=== PATIENT | male | born 1985 | race Caucasian/White ===

== ENCOUNTER 2016-12-05 08:14 | Day surgery (SDC) | payer BC ==
[~2016-12-05] VITALS: Ht 200.7 cm; Wt 157.9 kg
[~2016-12-05 08:14] MED LIST: IBUP-1724 PO; LIDOCAINE 1% (10mg/ml) 2ml SDV INJ ONE; LR 1,000 ML IV SCH; OMEP40CA52 PO
--- OUTSIDE RECORDS SUMMARY | 2016-12-05 08:20 | XMS REPORT | Continuity of Care Document ---
Author Author [facility] Organization [facility] Address Unknown Phone Unavailable Support Name Relationship Address Phone RANDI CENTENO MD Caregiver [address] [place] [address] SEEMA TORIBIO Next Of Kin [address] [place] [address] Insurance Providers Payer Name Policy Number Subscriber Name Relationship UMR [id number] Joe Toribio 16 Self / Same As Patient Problems Medical Problems Problem Onset Date Status Acute pain ~02/27/2014 Active Rhabdomyolysis ~10/08/2014 Active Chest wall pain ~10/08/2014 Active Costochondritis, acute ~10/28/2014 Active Rhabdomyolysis ~10/28/2014 Active Medications Medication Dose Route Sig Days/Qty Instructions Order Date Discontinued Date Status Ibuprofen 800 Mg ORAL THREE TIMES A DAY PRN PAIN 30 Qty 02/27/14 Active Acetaminophen/Codeine 1 Tab ORAL EVERY 4HRS PRN PAIN 15 Qty 02/27/14 10/08/14 Discontinued Social History No social history. Hospital Discharge Instructions No hospital discharge instructions. Plan of Care Discharge Date 10/28/14 4:37am Instructions/Education Provided Costochondritis (ED) Rhabdomyolysis (ED) Prescriptions See Medications Section Functional Status No functional status results. Allergies, Adverse Reactions, Alerts Allergen Type Severity Reaction Status Last Updated latex Allergy Mild Active 02/27/14 Immunizations No immunization records. Vital Signs Acute Vital Signs Vital Response Date/Time Temperature (Fahrenheit) 98.5 Pulse 73 bpm Respirations 20 Height 5 ft 9 in Weight 185 lb Body Mass Index 27.3 kg/m^2 Results Test Source Date Result Interp. Ref. Range Comments Activated Partial Thromboplast Time October 08, 2014 1:05pm 33.0 SEC N 25.0-39.0 Alanine Aminotransferase (ALT/SGPT) October 28, 2014 1:16am 39 U/L N 30- 65 Albumin October 28, 2014 1:16am 4.6 g/dL N 3.4-5.0 Albumin/Globulin Ratio October 28, 2014 1:16am 1.533 N 1.1-1.8 Alkaline Phosphatase October 28, 2014 1:16am 44 U/L N 38-126 Amylase Level October 09, 2014 9:05am 32 U/L N 25-115 [facility] Anion Gap October 28, 2014 1:16am 16.3 MEQ/L H 3-15 Aspartate Amino Transf (AST/SGOT) October 28, 2014 1:16am 26 U/L N 15-37 B-Type Natriuretic Peptide October 09, 2014 9:05am 15 PG/ML N 0-100 STAT [facility] BUN/Creatinine Ratio October 28, 2014 1:16am 17 N 10-20 Basophils # (Auto) October 28, 2014 1:05am 0.0 10^3uL Basophils (%) (Auto) October 28, 2014 1:05am 0 % N 0-2 Blood Urea Nitrogen October 28, 2014 1:16am 21 mg/dL DH 7-18 Calcium Level October 28, 2014 1:16am 9.3 mg/dL N 8.8-10.8 Calcium/Ionized Calcium Ratio October 28, 2014 1:16am 3.9 mg/dL N 3.8-4.6 Calculated Osmolality October 28, 2014 1:16am 278 mosm/L L 280-300 Carbon Dioxide Level October 28, 2014 1:16am 27 mmol/L N 22-29 Chloride Level October 28, 2014 1:16am 103 mmol/L N 98-108 Cholesterol Level October 09, 2014 9:05am 161 mg/dL N 50-200 [facility] Cholesterol Risk Factor October 09, 2014 9:05am 8.1 H 0.0-5.0 STAT [facility] Creatine Kinase MB October 28, 2014 1:16am 4.0 NG/ML N 0.0-6.0 Creatinine October 28, 2014 1:16am 1.27 mg/dL N 0.8-1.5 D-Dimer October 08, 2014 1:05pm < 0.22 ug/mL 0.00-0.41 Eosinophils # (Auto) October 28, 2014 1:05am 0.2 10^3uL Eosinophils (%) (Auto) October 28, 2014 1:05am 2 % N 0-4 Estimat Glomerular Filtration Rate October 28, 2014 1:16am 80.6 Estimated GFR (Non- October 28, 2014 1:16am 66.6 Glucose Level October 28, 2014 1:16am 107 mg/dL N 70-110 HDL Cholesterol October 09, 2014 9:05am 20 mg/dL L 40-60 STAT [facility] HDL Triglycerides October 09, 2014 9:05am 131 mg/dL N 10-150 STAT [facility] Hematocrit October 28, 2014 1:05am 39.30 % N 39.00-50.00 Hemoglobin October 28, 2014 1:05am 13.4 g/dL L 13.5-17.0 LDL Cholesterol (Measured) October 09, 2014 9:05am 115 mg/dL N 50-130 STAT [facility] Lipase October 09, 2014 9:05am 93 U/L N 23-300 STAT [facility] Lymphocytes # (Auto) October 28, 2014 1:05am 1.6 X10^3 Lymphocytes (%) (Auto) October 28, 2014 1:05am 20 % N 20-46 Mean Corpuscular Hemoglobin October 28, 2014 1:05am 27.8 PG N 26.0-34.0 Mean Corpuscular Hemoglobin Concent October 28, 2014 1:05am 34.1 g/dL N 31.0-37.0 Mean Corpuscular Volume October 28, 2014 1:05am 82 FL N 80-100 Mean Platelet Volume October 28, 2014 1:05am 10.7 FL H 6.0-9.5 Monocytes # (Auto) October 28, 2014 1:05am 0.6 X10^3 Monocytes (%) (Auto) October 28, 2014 1:05am 7 % N 3-11 Neutrophils # (Auto) October 28, 2014 1:05am 5.6 X10^3 Neutrophils (%) (Auto) October 28, 2014 1:05am 70 % H 51-67 Platelet Count October 28, 2014 1:05am 266 10^3uL N 150-450 Potassium Level October 28, 2014 1:16am 4.2 mmol/L N 3.5-5.1 Prothromb Time International Ratio October 08, 2014 1:05pm 1.0 N 0.8- 1.4 Prothrombin Time October 08, 2014 1:05pm 13.0 SEC N 12.3-14.4 Red Blood Count October 28, 2014 1:05am 4.82 10^6uL N 4.50-5.50 Red Cell Distribution Width October 28, 2014 1:05am 13.4 % N 11.8-15.6 Sodium Level October 28, 2014 1:16am 142 mmol/L N 135-150 Testosterone Level October 09, 2014 9:05am 120 ng/dL L 240-871 Thyroid Stimulating Hormone (TSH) October 09, 2014 9:05am 1.84 UIU/mL N 0.46-4.68 STAT TR[facility]ONIN [facility] CK[facility] Total Bilirubin October 28, 2014 1:16am 0.6 mg/dL DN 0.1-1.0 Total Creatine Kinase October 28, 2014 1:16am 290 U/L PH 55-170 Results called to Silvia/Kendra read back the results. Called by Rupal Arias at 0131 Total Protein October 28, 2014 1:16am 7.6 g/dL N 6.4-8.5 Troponin I October 28, 2014 1:16am < 0.012 ng/mL 0.010-0.080 Urine Bilirubin October 09, 2014 9:05am Negative Negative Urine Blood October 09, 2014 9:05am Negative Negative Urine Clarity October 09, 2014 9:05am Clear Urine Collection Type October 09, 2014 9:05am Clean catch Urine Color October 09, 2014 9:05am Yellow Urine Glucose (UA) October 09, 2014 9:05am Negative Negative Urine Ketones October 09, 2014 9:05am Negative Negative Urine Leukocyte Esterase October 09, 2014 9:05am Negative Negative Urine Nitrite October 09, 2014 9:05am Negative Negative Urine Protein October 09, 2014 9:05am Negative Negative Urine Specific [place] October 09, 2014 9:05am 1.025 1.005-1.030 Urine Urobilinogen October 09, 2014 9:05am 0.2 mg/dL 0.2-1.0 Urine pH October 09, 2014 9:05am 6.5 5.0 - 8.0 VLDL Cholesterol October 09, 2014 9:05am 26 mg/dL N 4.00-32.00 STAT [facility] White Blood Count October 28, 2014 1:05am 7.93 10^3uL N 4.0-11.0 Procedures Procedure Status Date Provider(s) CHEST X-RAY 1 VIEW FRONTAL completed 10/08/14 COMPREHEN METABOLIC PANEL completed 10/08/14 ASSAY OF CK (CPK) completed 10/08/14 CREATINE MB FRACTION completed 10/08/14 ASSAY OF TROPONIN QUANT completed 10/08/14 COMPLETE CBC W/AUTO DIFF WBC completed 10/08/14 FIBRIN DEGRADATION QUANT completed 10/08/14 PROTHROMBIN TIME completed 10/08/14 THROMBOPLASTIN TIME PARTIAL completed 10/08/14 ELECTROCARDIOGRAM TRACING completed 10/08/14 MEASURE BLOOD OXYGEN LEVEL completed 10/08/14 HYDRATE IV INFUSION ADD-ON completed 10/08/14 THER/PROPH/DIAG INJ IV PUSH completed 10/08/14 TX/PRO/DX INJ NEW DRUG ADDON completed 10/08/14 EMERGENCY DEPT VISIT completed 10/08/14 completed 10/08/14 completed 10/08/14 completed 10/08/14 ROUTINE VENIPUNCTURE completed 10/08/14 METABOLIC PANEL TOTAL CA completed 10/08/14 ASSAY OF CK (CPK) completed 10/08/14 THER/PROPH/DIAG INJ SC/IM completed 10/08/14 EMERGENCY DEPT VISIT completed 10/08/14 completed 10/08/14 ROUTINE VENIPUNCTURE completed 10/09/14 COMPREHEN METABOLIC PANEL completed 10/09/14 LIPID PANEL completed 10/09/14 URINALYSIS AUTO W/O SCOPE completed 10/09/14 ASSAY OF AMYLASE completed 10/09/14 ASSAY OF CK (CPK) completed 10/09/14 CREATINE MB FRACTION completed 10/09/14 ASSAY OF LIPASE completed 10/09/14 ASSAY OF NATRIURETIC PEPTIDE completed 10/09/14 ASSAY OF TOTAL TESTOSTERONE completed 10/09/14 ASSAY THYROID STIM HORMONE completed 10/09/14 ASSAY OF TROPONIN QUANT completed 10/09/14 COMPLETE CBC W/AUTO DIFF WBC completed 10/09/14 TTE W/DOPPLER COMPLETE completed 10/09/14 ROUTINE VENIPUNCTURE completed 10/10/14 COMPREHEN METABOLIC PANEL completed 10/10/14 ASSAY OF CK (CPK) completed 10/10/14 CREATINE MB FRACTION completed 10/10/14 ASSAY OF TROPONIN QUANT completed 10/10/14 Encounters Encounter Location Date/Time Registered Clinic [facility] 10/28/14 12:21am Departed Emergency Room [facility] 10/28/14 12:08am Registered Clinic [facility] 10/10/14 9:27am Registered Clinic [facility] 10/09/14 8:59am Departed Emergency Room [facility] 10/08/14 8:59pm Departed Emergency Room [facility] 10/08/14 12:56pm
--- OUTSIDE RECORDS SUMMARY | 2016-12-05 08:20 | XMS REPORT | Continuity of Care Document ---
Author Author [facility] Organization [facility] Address Unknown Phone Unavailable Care Team Providers Care Milk Handler Name Role Phone Lexa Goyal MD Primary Care Physician [phone] Insurance Providers Payer Name Policy Number Subscriber Name Relationship UMR [id number] Joe Toribio Self / Same As Patient Chief Complaint and Reason for Visit Chief Complaint Pain Reason for Visit Chest wall pain Rhabdomyolysis Problems Medical Problems Problem Onset Date Status Acute pain ~02/27/2014 Active Rhabdomyolysis ~10/08/2014 Active Chest wall pain ~10/08/2014 Active Medications Medication Dose Route Sig Days/Qty Instructions Order Date Discontinued Date Status Ibuprofen 800 Mg ORAL THREE TIMES A DAY PRN PAIN 30 Qty 02/27/14 Active Acetaminophen/Codeine 1 Tab ORAL EVERY 4HRS PRN PAIN 15 Qty 14 10/08/14 Discontinued Social History No social history. Hospital Discharge Instructions No hospital discharge instructions. Plan of Care Discharge Date 10/08/14 11:30pm Disposition 01 HOME OR SELF-CARE Condition at Discharge Stable Prescriptions See Medications Section Referrals Lexa Goyal MD Additional Instructions/Education Hydrocodone 5/325 - 1-2 every 6 hours as needed for pain. If you run out of the hydrocodone, you can take your Ultram if needed for pain. On Monday, you can start taking ibuprofen if needed for pain Continue to push fluids for the next [address] Goyal's office tomorrow morning and see if they still want you to recheck the labs since the CPK is coming down and your kidney function appears to be normal. Return if symptoms worsen Some of your test results may not be complete prior to your leaving the Emergency Department. The Emergency Department is not authorized to give test results over the phone. Please contact the doctor's office listed in this packet of information for your final results. Follow up with your primary care physician or return to the Emergency Department for worsening or worrisome symptoms. * Emergency Department phone number: [phone], x [phone] MEDICAL RECORD If you need copies of your X-rays, call [phone]. If you need copies of your medical record, including lab results, a signed authorization for release of records will be required. A telephone call for release of Health Information is not allowed. BILLING Billing can sometimes be confusing and frustrating. To help avoid confusion in the future, please take a moment to acquaint yourself with the billing parties for services. SERVICE BILLING [facility] Physician Services [facility] X-rays [place] [facility] Patients will receive bills for services from the appropriate provider. If you have any questions about your [facility] bill, our staff will be happy to assist you. Please call [phone], and ask for the billing department. THANK YOU for choosing [facility] as your emergency care provider! Functional Status No functional status results. Allergies, Adverse Reactions, Alerts Allergen Type Severity Reaction Status Last Updated latex Allergy Mild Active 02/27/14 Immunizations No immunization records. Vital Signs Acute Vital Signs Vital Response Date/Time Temperature (Fahrenheit) 98.9 Pulse 64 bpm Respirations 18 Height 6 ft 6 in Weight 334 lb Body Mass Index 38.0 kg/m^2 Results Test Source Date Result Interp. Ref. Range Comments Activated Partial Thromboplast Time October 08, 2014 1:05pm 33.0 SEC N 25.0-39.0 Alanine Aminotransferase (ALT/SGPT) October 08, 2014 1:05pm 43 U/L N 30 -65 Albumin October 08, 2014 1:05pm 5.2 g/dL H 3.4-5.0 Albumin/Globulin Ratio October 08, 2014 1:05pm 2.000 H 1.1-1.8 Alkaline Phosphatase October 08, 2014 1:05pm 40 U/L N 38-126 Anion Gap October 08, 2014 10:13pm 17.8 MEQ/L H 3-15 Aspartate Amino Transf (AST/SGOT) October 08, 2014 1:05pm 43 U/L H 15- 37 BUN/Creatinine Ratio October 08, 2014 10:13pm 8 L 10-20 Basophils # (Auto) October 08, 2014 1:05pm 0.0 10^3uL Basophils (%) (Auto) October 08, 2014 1:05pm 0 % N 0-2 Blood Urea Nitrogen October 08, 2014 10:13pm 10 mg/dL N 7-18 Calcium Level October 08, 2014 10:13pm 9.1 mg/dL N 8.8-10.8 Calcium/Ionized Calcium Ratio October 08, 2014 1:05pm 4.0 mg/dL N 3.8- 4.6 Calculated Osmolality October 08, 2014 1:05pm 274 mosm/L L 280-300 Carbon Dioxide Level October 08, 2014 10:13pm 26 mmol/L N 22-29 Chloride Level October 08, 2014 10:13pm 104 mmol/L N 98-108 Creatine Kinase MB October 08, 2014 1:05pm 7.0 NG/ML H 0.0-6.0 Creatinine October 08, 2014 10:13pm 1.22 mg/dL N 0.8-1.5 D-Dimer October 08, 2014 1:05pm < 0.22 ug/mL 0.00-0.41 Eosinophils # (Auto) October 08, 2014 1:05pm 0.1 10^3uL Eosinophils (%) (Auto) October 08, 2014 1:05pm 1 % N 0-4 Estimat Glomerular Filtration Rate October 08, 2014 10:13pm 84.4 Estimated GFR (Non- October 08, 2014 10:13pm 69.8 Glucose Level October 08, 2014 10:13pm 86 mg/dL N 70-110 Hematocrit October 08, 2014 1:05pm 40.70 % N 39.00-50.00 Hemoglobin October 08, 2014 1:05pm 13.7 g/dL N 13.5-17.0 Lymphocytes # (Auto) October 08, 2014 1:05pm 1.4 X10^3 Lymphocytes (%) (Auto) October 08, 2014 1:05pm 21 % N 20-46 Mean Corpuscular Hemoglobin October 08, 2014 1:05pm 27.6 PG N 26.0- 34.0 Mean Corpuscular Hemoglobin Concent October 08, 2014 1:05pm 33.7 g/dL N 31.0-37.0 Mean Corpuscular Volume October 08, 2014 1:05pm 82 FL N 80-100 Mean Platelet Volume October 08, 2014 1:05pm 10.7 FL H 6.0-9.5 Monocytes # (Auto) October 08, 2014 1:05pm 0.8 X10^3 Monocytes (%) (Auto) October 08, 2014 1:05pm 11 % N 3-11 Neutrophils # (Auto) October 08, 2014 1:05pm 4.4 X10^3 Neutrophils (%) (Auto) October 08, 2014 1:05pm 66 % N 51-67 Platelet Count October 08, 2014 1:05pm 288 10^3uL N 150-450 Potassium Level October 08, 2014 10:13pm 4.1 mmol/L N 3.5-5.1 Prothromb Time International Ratio October 08, 2014 1:05pm 1.0 N 0.8- 1.4 Prothrombin Time October 08, 2014 1:05pm 13.0 SEC N 12.3-14.4 Red Blood Count October 08, 2014 1:05pm 4.97 10^6uL N 4.50-5.50 Red Cell Distribution Width October 08, 2014 1:05pm 13.2 % N 11.8-15.6 Sodium Level October 08, 2014 10:13pm 143 mmol/L N 135-150 Total Bilirubin October 08, 2014 1:05pm 0.4 mg/dL N 0.1-1.0 Total Creatine Kinase October 08, 2014 10:13pm 824 U/L PH 55-170 Results called to LISA [facility] read back the results. Called by Itzel Roland at 2230 Total Protein October 08, 2014 1:05pm 7.8 g/dL N 6.4-8.5 Troponin I October 08, 2014 1:05pm < 0.012 ng/mL 0.010-0.080 Urine Bilirubin February 27, 2014 10:30am Negative Negative Collected by nurse? NUrine collection method Clean Catch Urine Blood February 27, 2014 10:30am Negative Negative Collected by nurse? NUrine collection method Clean Catch Urine Clarity February 27, 2014 10:30am Clear Collected by nurse? NUrine collection method Clean Catch Urine Collection Type February 27, 2014 10:30am Clean catch Collected by nurse? NUrine collection method Clean Catch Urine Color February 27, 2014 10:30am Yellow Collected by nurse? NUrine collection method Clean Catch Urine Glucose (UA) February 27, 2014 10:30am Negative Negative Collected by nurse? NUrine collection method Clean Catch Urine Ketones February 27, 2014 10:30am Negative Negative Collected by nurse? NUrine collection method Clean Catch Urine Leukocyte Esterase February 27, 2014 10:30am Negative Negative Collected by nurse? NUrine collection method Clean Catch Urine Nitrite February 27, 2014 10:30am Negative Negative Collected by nurse? NUrine collection method Clean Catch Urine Protein February 27, 2014 10:30am Negative Negative Collected by nurse? NUrine collection method Clean Catch Urine Specific [place] February 27, 2014 10:30am >=1.030 1.005-1.030 Collected by nurse? NUrine collection method Clean Catch Urine Urobilinogen February 27, 2014 10:30am 0.2 mg/dL 0.2-1.0 Collected by nurse? NUrine collection method Clean Catch Urine pH February 27, 2014 10:30am 5.5 5.0 - 8.0 Collected by nurse? NUrine collection method Clean Catch White Blood Count October 08, 2014 1:05pm 6.66 10^3uL N 4.0-11.0 Procedures No known history of procedures. Encounters Encounter Location Date/Time Departed Emergency Room [facility] 10/08/14 8:59pm Departed Emergency Room [facility] 10/08/14 12:56pm Recent Diagnosis
--- OUTSIDE RECORDS SUMMARY | 2016-12-05 08:20 | XMS REPORT | Summary of Care ---
Author Author Ayush Browne, [facility] Unknown Address [address] [place], [place] [id number] Phone Unavailable Care Team Providers Care Geology Instructor Name Role Phone Gautam Johnson M.D. Unavailable Unavailable Lexa Barakat PP Unavailable Functional Status Functional Status Health Issues* Name Dates Details Functional status health issues are not documented Status: Cognitive Status Health Issues* Name Dates Details Cognitive status health issues are not documented Status: Problems Name Dates Details Hypertension (401.9, I10) Status: Active Frequent headaches (784.0, R51) Status: Active Pericarditis (423.9, I31.9) Status: Active Chest pain (786.50, R07.9) Status: Active Medications Name Dates Details Hydrocodone-Acetaminophen 5-325 MG Oral Tablet TAKE 1 TABLET EVERY 4 TO 6 HOURS NEEDED. * Started 10-Oct-2014 ActivePriLOSEC 40 MG Oral Capsule Delayed Release TAKE 1 CAPSULE DAILY. * Refills: 0 * Started 21-Oct-2014 ActiveIndomethacin 25 MG Oral Capsule Take one tablet three times daily * Refills: 0 Leonid Johnson M.D.* Started 30-Oct-2014 Active Allergies and Adverse Reactions Name Dates Details No Known Drug Allergies Status: Active Procedures Procedure Dates Details History of Wrist Surgery Cardiac Surgery Ordered:24-Oct-2014 CP Stress Echo Ordered:28-Oct-2014 CP Echo Ordered:28-Oct-2014 CT CTA CORONARY ARTERIES W/ Ordered:30-Oct-2014 Immunization Name Dates Details Immunizations not documented Family History Unknown Family Member* Name Dates Details Family history of diabetes mellitus (V18.0, Z83.3) Comments: Family History Status: Active Mother* Name Dates Details Family history of epilepsy (V17.2, Z82.0) Status: Active Brother* Name Dates Details Family history of epilepsy (V17.2, Z82.0) Status: Active Social History Name Dates Details Smoking Status* Former smoker Vital Signs Date Test Result Details 30-Oct-2014 08:52 BP Systolic 152 mm[Hg] Status: BP Diastolic 84 mm[Hg] Status: Heart Rate 72 /min Status: Weight 346 lb Status: Body Mass Index Calculated 39.98 kg/m2 Status: Body Surface Area Calculated 2.85 m2 Status: 21-Oct-2014 14:20 BP Systolic 150 mm[Hg] Status: BP Diastolic 86 mm[Hg] Status: Heart Rate 68 /min Status: Weight 352 lb Status: Height 78 in Status: Body Mass Index Calculated 40.68 kg/m2 Status: Body Surface Area Calculated 2.87 m2 Status: Results Date Description Value Details 30-Oct-2014 09:09 ECG/ EKG (Special[facility]) Electro CardioGram (Better) Plan of Care Planned Observations* Name Dates Details Planned Goals not documented Goal Planned Encounters* Appointment; Provider: Evelyn Peacock On 18-Nov-2014 16:00 * Appointment; Provider: Dano Pittman On 06-Nov-2014 10:45 Instructions * Instructions not documented Encounters Appointment; Evelyn Peacock Encounter Diagnosis: Problem not documented On 30-Oct-2014 08:45 Appointment; Evelyn Peacock Encounter Diagnosis: Problem not documented On 21-Oct-2014 14:00
--- OUTSIDE RECORDS SUMMARY | 2016-12-05 08:20 | XMS REPORT | Continuity of Care Document ---
Author Author [facility] Organization [facility] Address Unknown Phone Unavailable Support Name Relationship Address Phone CLARISSA KHAN MD Caregiver [address] [place] [address] [place] [address] Unavailable [employer] Next Of Kin [address] [place] [address] Insurance Providers Guarantor Joe Toribio Address [address] [place] [address] Email DENIED NO TO PT [place] Payer [facility] Policy Number [id number] Subscriber's Name Joe Toribio Relationship [id number] Self Group Number [id number] Chief Complaint and Reason for Visit Chief Complaint Chest Pain Reason for Visit Atypical chest pain Problems Past Problems Medical Problem Onset Date Atypical chest pain Unknown Medications Current Home Medications Medication Dose Units Route Directions Days Qty Instructions Start Date Hydrocodone/Acetaminophen ([place] 5-325 Tablet) Unknown Strength Tablet Unknown Dose Oral As Needed 03/20/16 Ibuprofen 200 Mg Tablet 800 Mg Oral Every 8 Hours as needed for Pain 03/20/16 Indomethacin 25 Mg Capsule 1 Cap Oral Three Times A Day 30 Capsule 03/20/16 Lisinopril 10 Mg Tablet 10 Mg Oral Daily 03/20/16 Omeprazole 40 Mg Capsule.dr 40 Mg Oral Daily 03/20/16 Sucralfate (Carafate) 1 Gm Tablet 1 G Oral 30 Min Before Meals & Bedtime 40 Tablet 03/20/16 Social History Social History Problem Response Recorded Date/Time Onset Date Status Chewing Tobacco Status Yes 03/20/2016 1:08pm Not Applicable Not Applicable Hx Substance Use No 03/20/2016 1:08pm Not Applicable Not Applicable Hx Alcohol Use No 03/20/2016 1:08pm Not Applicable Not Applicable Tobacco Usage none 03/20/2016 1:46pm Not Applicable Not Applicable Query Response Start Date Stop Date Smoking Status Former smoker Hospital Discharge Instructions No hospital discharge instructions. Plan of Care Discharge Date 03/20/16 3:00pm Disposition 01 DISCHARGED HOME, SELF-CARE Condition at Discharge Improved Instructions/Education Provided DI for Atypical Chest Pain Forms Provided Return to Work/School Permit Prescriptions See Medication Section Referrals YULIYA FRAZIER MD Order Date: 3 Days Address: [address] [place] [address] Note: FOLLOW UP IN NEXT 3-7 DAYS FOR RE-EVALUATION NATHALIA KIMBLE MD Order Date: 3 Days Address: [facility] [address] [place] [address] Note: FOLLOW UP IN NEXT 3-7 DAYS FOR RE-EVALUATION Additional Instructions/Education 1) CONTINUE HOME MEDICATIONS DIRECTED ( LISINOPRIL AND OMEPRAZOLE) 2) ADD SUCRALFATE 1 GRAM BY MOUTH FOUR TIMES DAILY. TAKE 30 MINUTES BEFORE MEALS AND AT BEDTIME. 3) FOLLOW UP WITH DR. FRAZIER IN NEXT 2-3 DAYS OR IF YOU PREFER FOLLOW UP WITH YOUR HALL MONITOR, DR. NATHALIA KIMBLE IN NEXT 2-3 DAYS FOR RE-EVALUATION AND FURTHER TREATMENT 4) START INDOMETHACIN 25 MG BY MOUTH THREE TIMES A DAY Care Plan and Goals Physician Care Plan Problem: 1) ATYPICAL CHEST PAIN Goal: Follow up with primary care provider Instructions: Take medications and follow care plan as discussed/written Functional Status No functional status results. Allergies, Adverse Reactions, Alerts Allergen Type Severity Reaction Status Last Updated Latex Allergy Unknown RASH Active 03/20/16 Immunizations No immunization records. Vital Signs Acute Vital Signs Vital Response Date/Time Temperature (Fahrenheit) 98.1 deg F (96.8 - 99.1) 03/20/2016 3:00pm Temperature (Calculated Celsius) 36.09974 degrees C (36.0 - 37.3) 03/20/2016 3:00pm Pulse Rate (adult) 63 bpm (60 - 100) 03/20/2016 3:00pm Respiratory Rate 24 breaths/min (10 - 20) 03/20/2016 3:00pm O2 Sat by Pulse Oximetry 95 % (90 - 100) 03/20/2016 3:00pm Blood Pressure 125/81 mm Hg 03/20/2016 3:00pm Height (Feet) 6 feet 03/20/2016 1:08pm Height (Inches) 6.00 inches 03/20/2016 1:08pm Weight (Kilograms) 153.400 kg 03/20/2016 1:08pm Body Mass Index (BMI) 39.0 03/20/2016 1:08pm Results Laboratory Results Test Name Result Units Flags Reference Collection Date/Time Result Date/ Time Comments White Blood Count 6.6 T/MM3 4.5-11.0 03/20/2016 1:03/20/2016 1: 35pm Red Blood Count 5.02 M/MM3 4.50-5.90 03/20/2016 1:03/20/2016 1: 35pm Hemoglobin 13.7 GM/DL 13.5-17.5 03/20/2016 1:03/20/2016 1:35pm Hematocrit 41.2 % 41-53 03/20/2016 1:03/20/2016 1:35pm Mean Corpuscular Volume 82.1 UM3 80-100 03/20/2016 1:03/20/2016 1: 35pm Mean Corpuscular Hemoglobin 27.3 UUG 26-34 03/20/2016 1:2015 1:35pm Mean Corpuscular Hemoglobin Concent 33.3 GM/DL 31-37 03/20/2016 1:03/20/2016 1:35pm RDW Standard Deviation 38.7 FL 36.9-50.2 03/20/2016 1:03/20/2016 1 :35pm Platelet Count 227 T/MM3 130-400 03/20/2016 1:03/20/2016 1:35pm Mean Platelet Volume 10.8 UM3 9.4-12.4 03/20/2016 1:03/20/2016 1: 35pm Neutrophils (%) (Auto) 59.5 % 33-66 03/20/2016 1:03/20/2016 1: 35pm Lymphocytes (%) (Auto) 28.3 % 23-45 03/20/2016 1:03/20/2016 1: 35pm Monocytes (%) (Auto) 7.8 % 0-9.0 03/20/2016 1:03/20/2016 1:35pm Eosinophils (%) (Auto) 3.7 % 0-4 03/20/2016 1:03/20/2016 1:35pm Basophils (%) (Auto) 0.5 % 0-2 03/20/2016 1:03/20/2016 1:35pm Immature Granulocyte % (Auto) 0.2 % 0.0-0.5 03/20/2016 1:2015 1:35pm Absolute Neutrophils (auto) 3.9 T/MM3 1.8-7.7 03/20/2016 1:2015 1:35pm Absolute Lymphocytes (auto) 1.9 T/MM3 1-4.8 03/20/2016 1:2015 1:35pm Absolute Monocytes (auto) 0.5 T/MM3 0-0.8 03/20/2016 1:03/20/2016 1:35pm Absolute Eosinophils (auto) 0.2 T/MM3 0-0.5 03/20/2016 1:2015 1:35pm Absolute Basophils (auto) 0.0 T/MM3 0-0.2 03/20/2016 1:03/20/2016 1:35pm Absolute Immature Granulocyte (auto 0.01 T/MM3 0.00-0.03 03/20/2016 1: 03/20/2016 1:35pm Prothromb Time International Ratio 1.01 0.99-1.21 03/20/2016 1:03/20/2016 1:41pm THERAPUTIC RANGE=2.00-3.00 FOR ANTI-THROMBOSIS THERAPUTIC RANGE=2.50-3.50 FOR IMPLANTED VALVE D-Dimer 172 NG/ML 0-230 03/20/2016 1:03/20/2016 1:41pm <230 NG/ ML D-DU=PRESUMPTIVE NEGATIVE FOR PE OR DVT >230 NG/ML D-DU=ADDITIONAL EVAL FOR PE OR DVT RECOMMENDED Icterus Index < 2 0-7 03/20/2016 1:03/20/2016 1:38pm Chemistry Specimen Hemolysis < 15 0-25 03/20/2016 1:03/20/2016 1 :38pm 0-25: Specimen Exhibited No Hemolysis. Turbidity < 20 0-20 03/20/2016 1:pm 03/20/2016 1:38pm Sodium Level 144 MEQ/L 134-144 03/20/2016 1:03/20/2016 1:45pm Potassium Level 4.3 MEQ/L 3.6-5 03/20/2016 1:03/20/2016 1:45pm Chloride Level 109 MEQ/L H 98-107 03/20/2016 1:03/20/2016 1:45pm Carbon Dioxide Level 21 MEQ/L L 22-30 03/20/2016 1:03/20/2016 1: 45pm Anion Gap 14 MEQ/L 5-15 03/20/2016 1:03/20/2016 1:45pm Blood Urea Nitrogen 15.0 MG/DL 9-20 03/20/2016 1:03/20/2016 1: 45pm Creatinine 0.9 MG/DL 0.8-1.5 03/20/2016 1:03/20/2016 1:45pm BUN/Creatinine Ratio 17 RATIO 6-26 03/20/2016 1:03/20/2016 1:45pm Glomerular Filtration Rate Calc 98 03/20/2016 1:03/20/2016 1: 45pm Glucose Level 93 MG/DL 75-110 03/20/2016 1:03/20/2016 1:45pm Calculated Osmolality 278 MOSM/KG 261-280 03/20/2016 1:03/20/2016 1:45pm Calcium Level 9.6 MG/DL 8.4-10.2 03/20/2016 1:03/20/2016 1:45pm Total Bilirubin 0.50 MG/DL 0.20-1.30 03/20/2016 1:03/20/2016 1: 45pm Alkaline Phosphatase 55 U/L 38-126 03/20/2016 1:03/20/2016 1:45pm Total Protein 7.5 G/DL 6.3-8.2 03/20/2016 1:03/20/2016 1:45pm Albumin 4.4 G/DL 3.5-5.0 03/20/2016 1:03/20/2016 1:45pm Globulin 3.1 G/DL 2.4-3.6 03/20/2016 1:03/20/2016 1:45pm Albumin/Globulin Ratio 1.4 RATIO 1.1-2.2 03/20/2016 1:03/20/2016 1 :45pm Aspartate Amino Transf (AST/SGOT) 26 U/L 17-59 03/20/2016 1:2015 1:45pm Alanine Aminotransferase (ALT/SGPT) 33 U/L 21-72 03/20/2016 1: 1:45pm Troponin I < 0.012 ng/ml 0-0.12 03/20/2016 1:03/20/2016 1:55pm Troponin values with a difference of 55% increase from orginal troponin value represent a true biological DELTA value. (%increase Calc=Orginal Troponin value, divided by subsequent Troponin value, multiplied by 100) [id number]-Gai-Z-Type Natriuretic Peptide 18 PG/ML 0-175 03/20/2016 1: 2:11pm Rule in cut points: <50 years old=450; 50-75 years old=900; >75 years old=1800; When utilizing ProBNP rule-in cut points, adjustment for impaired renal function is typically not required. Magnesium Level 2.1 MG/DL 1.6-2.3 03/20/2016 1:03/20/2016 2:01pm Thyroid Stimulating Hormone (TSH) 2.84 MIU/L 0.47-4.68 03/20/2016 1: 03/20/2016 2:51pm Urine Collection Type CLEANCATCH-MIDSTREAM 03/20/2016 2:pm 2015 2:50pm Urine Color YELLOW YELLOW 03/20/2016 2:pm 03/20/2016 2:50pm Urine Turbidity CLEAR CLEAR 03/20/2016 2:43pm 03/20/2016 2:50pm Urine Specific [place] >=1.030 H 1.015-1.025 03/20/2016 2:43pm 2015 2:50pm Urine pH 5.5 5.0-8.0 03/20/2016 2:43pm 03/20/2016 2:50pm Urine Leukocyte Esterase NEGATIVE NEGATIVE 03/20/2016 2:43pm 2015 2:50pm Urine Nitrite NEGATIVE NEGATIVE 03/20/2016 2:43pm 03/20/2016 2:50pm Urine Protein NEGATIVE NEGATIVE 03/20/2016 2:43pm 03/20/2016 2:50pm Urine Glucose (UA) NEGATIVE NEGATIVE 03/20/2016 2:43pm 03/20/2016 2: 50pm Urine Ketones NEGATIVE NEGATIVE 03/20/2016 2:43pm 03/20/2016 2:50pm Urine Urobilinogen 0.2 EU/DL NORMAL 03/20/2016 2:43pm 03/20/2016 2: 50pm Urine Bilirubin NEGATIVE NEGATIVE 03/20/2016 2:43pm 03/20/2016 2: 50pm Urine Blood NEGATIVE NEGATIVE 03/20/2016 2:43pm 03/20/2016 2:50pm Urinalysis Comment MICROSCOPIC NOT IND. 03/20/2016 2:43pm 2015 2:50pm Procedures No known history of procedures. Encounters Encounter Location Arrival/Admit Date Discharge/Depart Date Attending Provider Departed Emergency Room [facility] 03/20/16 1:08pm 03/20/16 3: 00pm CLARISSA KHAN MD Recent Diagnosis
--- OUTSIDE RECORDS SUMMARY | 2016-12-05 08:20 | XMS REPORT | Summary of Care ---
Author Author Ayush Browne, [place] Unknown Address [address], [place] [id number] Phone Unavailable Care Team Providers Care Mill Dresser Name Role Phone Lexa Barakat DAVID Unavailable Functional Status Functional Status Health Issues* Name Dates Details Functional status health issues are not documented Status: Cognitive Status Health Issues* Name Dates Details Cognitive status health issues are not documented Status: Problems Name Dates Details Hypertension (401.9, I10) Status: Active Frequent headaches (784.0, R51) Status: Active Chest pain (786.50, R07.9) Status: Active Pericarditis (423.9, I31.9) Status: Active Medications Name Dates Details Hydrocodone-Acetaminophen 5-325 MG Oral Tablet TAKE 1 TABLET EVERY 4 TO 6 HOURS NEEDED. * Started 10-Oct-2014 ActiveIbuprofen 800 MG Oral Tablet TAKE 1 TABLET 3 TIMES DAILY NEEDED. * Refills: 0 * Started 10-Oct-2014 ActivePriLOSEC 20 MG Oral Capsule Delayed Release TAKE 1 CAPSULE DAILY. * Refills: 0 * Started 21-Oct-2014 Active Allergies and Adverse Reactions Name Dates Details No Known Drug Allergies Status: Active Procedures Procedure Dates Details History of Wrist Surgery Procedures not documented Immunization Name Dates Details Immunizations not documented [...] smoker Vital Signs Date Test Result Details 21-Oct-2014 14:20 BP Systolic 150 mm[Hg] Status: BP Diastolic 86 mm[Hg] Status: Heart Rate 68 /min Status: Weight 352 lb Status: Height 78 in Status: Body Mass Index Calculated 40.68 kg/m2 Status: Body Surface Area Calculated 2.87 m2 Status: Results Date Description Value Details Results not documented Plan of Care Planned Observations* Name Dates Details Planned Goals not documented Goal Planned Encounters* Appointment; Provider: Evelyn Peacock On 18-Nov-2014 16:00 * Appointment; Provider: Dano Pittman On 06-Nov-2014 10:45 Instructions * Instructions not documented Encounters Appointment; Evelyn Peacock Encounter Diagnosis: Problem not documented On 21-Oct-2014 14:00
--- OUTSIDE RECORDS SUMMARY | 2016-12-05 08:21 | XMS REPORT | Continuity of Care Document ---
Author Author [facility] Organization [facility] Address Unknown Phone Unavailable Care Team Providers Care Academic Support Director Name Role Phone Lexa Goyal MD Primary Care Physician [phone] Insurance Providers Payer Name Policy Number Subscriber Name Relationship [employer] [id number] Joe Toribio Self / Same As Patient Chief Complaint and Reason for Visit Chief Complaint Cardiac Complaint Reason for Visit Rhabdomyolysis Problems Medical Problems Problem Onset Date Status Acute pain ~02/27/2014 Active Rhabdomyolysis Unknown Active Medications Medication Dose Route Sig Days/Qty Instructions Order Date Discontinued Date Status Ibuprofen 800 Mg ORAL THREE TIMES A DAY PRN PAIN 30 Qty 02/27/14 Active Acetaminophen/Codeine 1 Tab ORAL EVERY 4HRS PRN PAIN 15 Qty 14 10/08/14 Discontinued Social History No social history. Hospital Discharge Instructions No hospital discharge instructions. Plan of Care Discharge Date 10/08/14 4:12pm Disposition 01 HOME OR SELF-CARE Condition at Discharge Stable Instructions/Education Provided Rhabdomyolysis (ED) Prescriptions See Medications Section Referrals Lexa Goyal MD Additional Instructions/Education Follow up for labs tomorrow. Return to the ED if any worse. Push fluids. Stop all supplements. Contact your doctor tomorrow after repeat labs drawn. Some of your test results may not [...] worrisome symptoms. * Emergency Department phone number: [phone], x [phone]* MEDICAL RECORD If you need copies of your X-rays, call [phone] x [phone]. If you need copies of [...] services. SERVICE BILLING [facility]PUBL[facility] Emergency Room Services [facility] Physician Services [facility] X-rays [facility] Patients will receive bills for services from the appropriate provider. If you have any questions about your [facility] bill, our staff will be happy to assist you. Please call [phone], and ask for the billing department. THANK YOU for choosing [facility] as your emergency care provider! Functional Status No functional status results. Allergies, Adverse Reactions, Alerts Allergen Type Severity Reaction Status Last Updated latex Allergy Mild Active 02/27/14 Immunizations No immunization records. Vital Signs Acute Vital Signs Vital Response Date/Time Temperature (Fahrenheit) 97.0 Pulse 61 bpm Respirations 16 Height 6 ft 6 in Weight 334 lb Body Mass Index 38.0 kg/m^2 Results Test Source Date Result Interp. Ref. Range Comments Albumin/Globulin Ratio October 08, 2014 1:05pm 2.000 H 1.1-1.8 Albumin October 08, 2014 1:05pm 5.2 g/dL H 3.4-5.0 Total Protein October 08, 2014 1:05pm 7.8 g/dL N 6.4-8.5 Troponin I October 08, 2014 1:05pm < 0.012 ng/mL 0.010-0.080 Creatine Kinase MB October 08, 2014 1:05pm 7.0 NG/ML H 0.0-6.0 Total Creatine Kinase October 08, 2014 1:05pm 868 U/L PH 55-170 Results called to Bree read back the results. Called by Brianna Flannery at 1400 Alanine Aminotransferase (ALT/SGPT) October 08, 2014 1:05pm 43 U/L N 30 -65 Aspartate Amino Transf (AST/SGOT) October 08, 2014 1:05pm 43 U/L H 15- 37 Alkaline Phosphatase October 08, 2014 1:05pm 40 U/L N 38-126 Total Bilirubin October 08, 2014 1:05pm 0.4 mg/dL N 0.1-1.0 Calcium/Ionized Calcium Ratio October 08, 2014 1:05pm 4.0 mg/dL N 3.8- 4.6 Calcium Level October 08, 2014 1:05pm 9.5 mg/dL N 8.8-10.8 Calculated Osmolality October 08, 2014 1:05pm 274 mosm/L L 280-300 Glucose Level October 08, 2014 1:05pm 87 mg/dL N 70-110 Estimated GFR (Non- October 08, 2014 1:05pm 68.5 Estimat Glomerular Filtration Rate October 08, 2014 1:05pm 82.8 BUN/Creatinine Ratio October 08, 2014 1:05pm 9 L 10-20 Creatinine October 08, 2014 1:05pm 1.24 mg/dL N 0.8-1.5 Blood Urea Nitrogen October 08, 2014 1:05pm 11 mg/dL N 7-18 Anion Gap October 08, 2014 1:05pm 17.1 MEQ/L H 3-15 Carbon Dioxide Level October 08, 2014 1:05pm 27 mmol/L N 22-29 Chloride Level October 08, 2014 1:05pm 103 mmol/L N 98-108 Potassium Level October 08, 2014 1:05pm 4.2 mmol/L N 3.5-5.1 Sodium Level October 08, 2014 1:05pm 142 mmol/L N 135-150 D-Dimer October 08, 2014 1:05pm < 0.22 ug/mL 0.00-0.41 Activated Partial Thromboplast Time October 08, 2014 1:05pm 33.0 SEC N 25.0-39.0 Prothromb Time International Ratio October 08, 2014 1:05pm 1.0 N 0.8- 1.4 Prothrombin Time October 08, 2014 1:05pm 13.0 SEC N 12.3-14.4 Basophils # (Auto) October 08, 2014 1:05pm 0.0 10^3uL Basophils (%) (Auto) October 08, 2014 1:05pm 0 % N 0-2 Eosinophils # (Auto) October 08, 2014 1:05pm 0.1 10^3uL Eosinophils (%) (Auto) October 08, 2014 1:05pm 1 % N 0-4 Hematocrit October 08, 2014 1:05pm 40.70 % [...] 08, 2014 1:05pm 288 10^3uL N 150-450 Red Blood Count October 08, 2014 1:05pm 4.97 10^6uL N 4.50-5.50 Red Cell Distribution Width October 08, 2014 1:05pm 13.2 % N 11.8-15.6 Urine Bilirubin February 27, 2014 10:30am Negative [...] NUrine collection method Clean Catch Urine Specific [place] February 27, 2014 10:30am >=1.030 1.005-1.030 Collected [...] Encounters Encounter Location Date/Time Departed Emergency Room [facility] 10/08/14 12:56pm Recent Diagnosis
--- OUTSIDE RECORDS SUMMARY | 2016-12-05 08:21 | XMS REPORT | Summary of Care ---
Author Author Ayush Browne, [place] Unknown Address [address], [place] [address] Phone Unavailable Care Team Providers Care Employee Benefits Insurance Agent Name Role Phone Lexa Barakat DAVID Unavailable Functional Status Functional Status Health Issues* Name Dates Details Functional status health issues are not documented Status: Cognitive Status Health Issues* Name Dates Details Cognitive status health issues are not documented Status: Problems Name Dates Details Hypertension (401.9, I10) Status: Active Frequent headaches (784.0, R51) Status: Active Pericarditis (423.9, I31.9) Status: Active 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 * Started 21-Oct-2014 Active Allergies and Adverse Reactions Name Dates Details No Known Drug Allergies Status: Active Procedures Procedure Dates Details History of Wrist Surgery CP Stress Echo Ordered:28-Oct-2014 CP Echo Ordered:28-Oct-2014 Immunization Name Dates Details Immunizations not documented [...] smoker Vital Signs Date Test Result Details 16-Dec-2014 15:56 BP Systolic 152 mm[Hg] Status: BP Diastolic 100 mm[Hg] Status: Heart Rate 80 /min Status: Weight 344 lb Status: Body Mass Index Calculated 39.75 kg/m2 Status: Body Surface Area Calculated 2.84 m2 Status: Results Date Description Value Details Results not documented Plan of Care Planned Observations* Name Dates Details Planned Goals not documented Goal Instructions * Instructions not documented Encounters Appointment; Evelyn Peacock Encounter Diagnosis: Problem not documented On 16-Dec-2014 15:45 Appointment; Dano Pittman Encounter Diagnosis: Problem not documented On 06-Nov-2014 10:45 Appointment; Evelyn Peacock Encounter Diagnosis: Problem not documented On 30-Oct-2014 08:45 Appointment; Evelyn Peacock Encounter Diagnosis: Problem not documented On 21-Oct-2014 14:00
--- OUTSIDE RECORDS SUMMARY | 2016-12-05 08:21 | XMS REPORT | Continuity of Care Document ---
Author Author [facility] Organization [facility] Address Unknown Phone Unavailable Allergies Active Description Code Type Severity Reaction Onset Reported/Identified Relationship to Patient Clinical Status Yes latex [id number] Drug Allergy Mild N/A 02/27/2014 Yes Chocolate egg- containing compound N/A swelling 09/23/2014 Yes Latex Other N/A rash 09/23/2014 Medications Problems Date Dx Coded Attending Type Code Diagnosis Diagnosed By 10/08/2014 JOSIAH COOL MD Ot 728.88 RHABDOMYOLYSIS 10/08/2014 JOSIAH COOL MD Ot 786.50 CHEST PAIN NOS 10/08/2014 AGUSTINA AGUDELO, VERO Ot 728.88 RHABDOMYOLYSIS 10/08/2014 VERO BERRIOS MD Ot 786.52 PAINFUL RESPIRATION 10/28/2014 Ot 728.88 RHABDOMYOLYSIS 10/28/2014 Ot 786.52 PAINFUL RESPIRATION 12/05/2014 Jay Jay AGUDELO, Lexa Flannery Ot 401.9 12/05/2014 Jay Jay AGUDELO, Lexa Flannery Ot 429.3 12/05/2014 Jay Jay AGUDELO, Lexa Flannery Ot 728.88 12/05/2014 Jay Jay AGUDELO, Lexa Flannery Ot 786.50 12/05/2014 Jay Jay AGUDELO, Lexa Flannery Ot 789.00 12/05/2014 Jay Jay AGUDELO, Lexa Flannery Ot 728.88 12/05/2014 Ot V70.4 12/05/2014 Jay Jay AGUDELO, Lexa Flannery Ot 401.9 12/05/2014 Jay Jay AGUDELO, Lexa Flannery Ot 429.3 12/05/2014 Jay Jay AGUDELO, Lexa Flannery Ot 728.88 12/05/2014 Jay Jay AGUDELO, Lexa Flannery Ot 786.50 12/05/2014 Jay Jay AGUDELO, Lexa Flannery Ot 789.00 12/05/2014 Jay Jay AGUDELO, Lexa Flannery Ot 728.88 12/05/2014 Ot V70.4 12/05/2014 Ot V70.4 01/14/2015 Jay Jay AGUDELO, Peter E Ot 401.9 01/14/2015 Jay Jay AGUDELO, Lexa E Ot 429.3 01/14/2015 Jay Jay AGUDELO, Lexa Flannery Ot 728.88 01/14/2015 Jay Jay AGUDELO, Lexa Flannery Ot 786.50 01/14/2015 Jay Jay AGUDELO, Lexa Flannery Ot 789.00 01/14/2015 Jay Jay AGUDELO, Lexa Flannery Ot 728.88 01/28/2015 Jay Jay AGUDELO, Lexa Flannery Ot 401.9 01/28/2015 Jay Jay AGUDELO, Lexa Flannery Ot 429.3 01/28/2015 Jay Jay AGUDELO, Lexa Flannery Ot 728.88 01/28/2015 Jay Jay AGUDELO, Lexa Flannery Ot 786.50 01/28/2015 Jay Jay AGUDELO, Lexa Flannery Ot 789.00 01/28/2015 Jay Jay AGUDELO, Lexa Flannery Ot 728.88 01/28/2015 Ot V70.4 02/05/2015 Jay Jay AGUDELO, Lexa Flannery Ot 401.9 02/05/2015 Jay Jay AGUDELO, Lexa Flannery Ot 429.3 02/05/2015 Jay Jay AGUDELO, Lexa Flannery Ot 728.88 02/05/2015 Jay Jay AGUDELO, Lexa Flannery Ot 786.50 02/05/2015 Jay Jay AGUDELO, Lexa Flannery Ot 789.00 02/05/2015 Jay Jay AGUDELO, Lexa Flannery Ot 728.88 02/05/2015 Ot V70.4 02/26/2015 Jay Jay AGUDELO, Lexa Flannery Ot 729.5 03/11/2015 ABUNDIO CURRY DO Ot 728.88 RHABDOMYOLYSIS 03/11/2015 ABUNDIO CURRY DO Ot 786.50 CHEST PAIN NOS 08/10/2015 Jay Jay AGUDELO, Lexa Flannery Ot 401.9 08/10/2015 Jay Jay AGUDELO, Lexa Flannery Ot 429.3 08/10/2015 Jay Jay AGUDELO, Lexa Flannery Ot 728.88 08/10/2015 Jay Jay AGUDELO, Lexa Flannery Ot 786.50 08/10/2015 Jay Jay AGUDELO, Lexa Flannery Ot 789.00 08/10/2015 Jay Jay AGUDELO, Lexa Flannery Ot 728.88 08/10/2015 Ot V70.4 08/10/2015 Jay Jay AGUDELO, Lexa Flannery Ot 729.5 08/26/2015 Jay JayLexa colunga MD Ot R07.89 12/25/2015 Lexa Goyal MD Ot 401.9 HYPERTENSION NOS 12/25/2015 Lexa Goyal MD Ot 429.3 CARDIOMEGALY 12/25/2015 Lexa Goyal MD Ot 728.88 RHABDOMYOLYSIS 12/25/2015 Lexa Goyal MD Ot 786.50 CHEST PAIN NOS 12/25/2015 Lexa Goyal MD Ot 789.00 ABDOMINAL PAIN, UNSPECIFIED SITE 12/25/2015 Lexa Goyal MD Ot 728.88 RHABDOMYOLYSIS 12/25/2015 Ot V70.4 EXAM-MEDICOLEGAL REASONS 12/25/2015 Lexa Goyal MD Ot 729.5 PAIN IN LIMB 12/25/2015 Lexa Goyal MD Ot R07.89 OTHER CHEST PAIN 12/30/2015 Lexa Goyal MD Ot R10.84 GENERALIZED ABDOMINAL PAIN 12/30/2015 Lexa Goyal MD Ot R93.5 ABN FINDINGS ON DX IMAGING OF ABD REGION 01/01/2016 Lexa Goyal MD Ot R10.84 GENERALIZED ABDOMINAL PAIN 01/01/2016 Lexa Goyal MD Ot R93.5 ABN FINDINGS ON DX IMAGING OF ABD REGION 02/01/2016 Lexa Goyal MD Ot R10.84 GENERALIZED ABDOMINAL PAIN 02/01/2016 Lexa Goyal MD Ot R93.5 ABN FINDINGS ON DX IMAGING OF ABD REGION 09/20/2016 Ot V70.4 EXAM-MEDICOLEGAL REASONS Procedures Results Test Result Range CBC WITH PLATELET AND DIFFERENTIAL - 10/23/16 10:25 SEGS 65.2 % NRG *BASOPHILS 0.6 % NRG *EOSINOPHILS 3.5 % NRG AUTOMATED DIFF PERFORMED NRG *LYMPHOCYTES 23.0 % NRG *MONOCYTES 7.7 % NRG *ABSOLUTE BASOPHILS 0.00 10*3/uL 0.00- 0.20 *ABSOLUTE EOSINOPHILS 0.30 10*3/uL 0.00- 0.50 *ABSOLUTE LYMPHOCYTES 1.80 10*3/uL 1.00- 3.00 *ABSOLUTE MONOCYTES 0.60 10*3/uL 0.30- 1.00 *ABSOLUTE NEUTROPHILS 5.00 10*3/uL 1.80- 7.80 MPV 8.7 fL 7.4-10.4 PLATELETS 252 10*3/uL 159-386 WBC 7.6 10*3/uL 3.6-11.2 RBC 5.23 4.06-5.63 HEMOGLOBIN 13.7 12.5-16.3 HEMATOCRIT 41.3 % 36.7-47.1 MCV 79.0 fL 80.0-100.0 MCH 26.3 pg 27.0-33.0 MCHC 33.2 32.0-36.0 RDW 13.6 % 12.3-17.0 RDWSD 38.1 37.1-47.8 COMPREHENSIVE METABOLIC PANEL - 10/23/16 10:25 BILIFUBIN TOTAL 0.40 0.20-1.00 TOTAL PROTEIN 7.8 6.4-8.2 ALBUMIN 4.1 3.4-5.0 *GLOBULIN 3.7 2.3-3.5 *A/G RATIO 1.1 1.5-2.2 ALK PHOS 69 U/L 46-116 ALT (SGPT) 34 U/L 14-59 AST (SGOT) 10 U/L 15-37 GFR ESTIMATION - 10/23/16 10:25 *GFR EST NON AFR GRENADIAN 90 mL/min NRG *GRFA EST AFR AMER >90 mL/min NRG PARTIAL THROMBOPLASTIN TIME - 10/23/16 10:25 PARTIAL THROMBOPLASTIN TIME 29.3 s 23.0- 31.0 PROTHROMBIN TIME - 10/23/16 10:25 *INR 1.0 0.9-1.1 *PROTHROMBIN TIME 10.9 s 9.4-11.5 TROPONIN-I - 10/23/16 10:25 TROPONIN-I <0.017 ng/mL 0.000-0.056 Encounters ACCT No. Visit Date/Time Discharge Status Pt. Type Provider Facility Loc./Unit Complaint [id number] 11/09/2016 11:33:00 2016 23:59:00 DIS Outpatient Ronnie Harris [facility] Surg [place] [id number] 10/24/2016 15:56:00 2016 23:59:00 DIS Outpatient Leonid Goins [facility] New FM TCPA HEARTBURN IN ER ON 10-24-16 [id number] 09/23/2014 10:51:00 2014 23:59:00 DIS Outpatient Rosa Amaya [facility] New FM left side of face swollen
--- OUTSIDE RECORDS SUMMARY | 2016-12-05 08:21 | XMS REPORT | Summary of Care ---
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 * Start 21-Oct-2014 Active Lisinopril 10 MG Oral Tablet TAKE 1 TABLET DAILY. * Refills: 0 * Start Active Indomethacin 25 MG Oral Capsule TAKE 1 CAPSULE 3 TIMES DAILY WITH FOOD. * Refills: 0 * Start Active Allergies and Adverse Reactions Name Dates Details No Known Drug Allergies (Allergy) Status: Active Procedures Procedure Dates Details History of Wrist Surgery Procedures not documented Immunization Name Dates Details Immunizations not documented Family History Name Dates Details Family history of diabetes mellitus (V18.0, Z83.3) Comments: Family History Status: Active Name Dates Details Family history of epilepsy (V17.2, Z82.0) Status: Active Name Dates Details Family history of epilepsy (V17.2, Z82.0) Status: Active Social History Name Dates Details - Status: Name Dates Details Former smoker Vital Signs Date Test Result Details 10:57 BP Systolic 142 mm[Hg] Status: Comments: Location: ; Position: BP Diastolic 84 mm[Hg] Status: Comments: Location: ; Position: Heart Rate 78 /min Status: Comments: Location: ; Weight 342 lb Status: Body Mass Index Calculated 39.52 kg/m2 Status: Body Surface Area Calculated 2.84 m2 Status: Results Date Description Value Details 11:12 ECG/ EKG (Specialists) Electro CardioGram 12:20 TROPONIN I 3451 TROPONIN I <0.04 ng/mL Range: .09 Comments: Result called to Kellee by Jazzy Wolff on 03/24/2016 at 12: 25 PMVerified by Repeat Analysis<0.10 ng/ml=Negative for MI0.10-0.59 ng/ml= Indeterminate for MI0.60-1.50 ng/ml=Suggestive of [place]----- Plan of Care Name Dates Details Planned Observations Planned Goals not documented Instructions Name Dates Details Instructions not documented Encounters Appointment; Evelyn Peacock M.D. Encounter Diagnosis: Problem not documented On 10:30 Appointment; Evelyn Peacock M.D. Encounter Diagnosis: Problem not documented On 16-Dec-2014 15:45 Appointment; Dano Pittman M.D. Encounter Diagnosis: Problem not documented On 06-Nov-2014 10:45 Appointment; Evelyn Peacock M.D. Encounter Diagnosis: Problem not documented On 30-Oct-2014 08:45 Appointment; Evelyn Peacock M.D. Encounter Diagnosis: Problem not documented On 21-Oct-2014 14:00
--- OUTSIDE RECORDS SUMMARY | 2016-12-05 08:21 | XMS REPORT | Summary of Care ---
Author Author Ayush Browne, [employer] Unknown Address [address], [place] [id number] Phone Unavailable Care Team Providers Care Music Theory Professor Name Role Phone Lexa Barakat DAVID Unavailable [...] not documented Goal Planned Encounters* Appointment; Provider: Dano Pittman On 06-Nov-2014 10:45 Instructions * Instructions not documented Encounters Appointment; Evelyn Peacock Encounter Diagnosis: Problem not documented On 21-Oct-2014 14:00
--- OUTSIDE RECORDS SUMMARY | 2016-12-05 08:21 | XMS REPORT | Summary of Care ---
Author Author Dano Pittman M.D. Organization Unknown Address [address], [place] [id number] Phone Unavailable Care Team Providers Care Green Chain Puller Name Role Phone Gautam Johnson M.D. Unavailable [...] smoker Vital Signs Date Test Result Details 06-Nov-2014 10:55 BP Systolic 153 mm[Hg] Status: BP Diastolic 96 mm[Hg] Status: Heart Rate 66 /min Status: Weight 341 lb Status: Height 78 in Status: O2 SAT 97 % Status: Body Mass Index Calculated 39.41 kg/m2 Status: Body Surface Area Calculated 2.83 m2 Status: 30-Oct-2014 08:52 BP Systolic 152 mm[Hg] Status: [...] Appointment; Provider: Evelyn Peacock On 18-Nov-2014 16:00 Instructions * Instructions not documented Encounters Appointment; Dano Pittman Encounter Diagnosis: Problem not documented On 06-Nov-2014 10:45 Appointment; Evelyn Peacock Encounter Diagnosis: Problem not documented On 30-Oct-2014 08:45 Appointment; Evelyn Peacock Encounter Diagnosis: Problem not documented On 21-Oct-2014 14:00
--- OUTSIDE RECORDS SUMMARY | 2016-12-05 08:21 | XMS REPORT ---
Author Author [facility] Organization Unknown Address Unknown Phone Unavailable Care Team Providers Care Log Rafter Name Role Phone PP Unavailable Reason For Visit Chief Complaint CHEST PAIN Social History Functional Status Vital Signs Results Chemistry from 08/08/2015 1:35 PMSODIUM 139 MMOL/L (136-145 MMOL/L) POTASSIUM 4.0 MMOL/L (3.5-5.1 MMOL/L) CHLORIDE 105 MMOL/L (98-107 MMOL/L) TCO2 27.0 MMOL/L (21.0-32.0 MMOL/L) *ANION GAP 7.0 MMOL/L L (8.0-16.0 MMOL/L) BUN 13 MG/DL (7-18 MG/DL) CREATININE 1.18 MG/DL (0.70-1.30 MG/DL) *BUN/CREATININE RATIO 11.0 (9.1-17.0 ) GLUCOSE 104 MG/DL H (65-99 MG/DL) *GFR EST NON AFR MACANESE 81 ML/MIN *GFRA EST AFR AMER >90 ML/MIN CALCIUM 9.1 MG/DL (8.5-10.1 MG/DL) BILIRUBIN TOTAL 0.40 MG/DL (0.20-1.00 MG/DL) TOTAL PROTEIN 7.9 GM/DL (6.4-8.2 GM/DL) ALBUMIN 4.2 GM/DL (3.4-5.0 GM/DL) *GLOBULIN 3.7 GM/DL H (2.3-3.5 GM/DL) *A/G RATIO 1.1 MG/DL L (1.5-2.2 MG/DL) ALK PHOS 60 U/L (46-116 U/L) ALT (SGPT) 42 U/L (14-59 U/L) AST (SGOT) 21 U/L (15-37 U/L) AMYLASE 29 U/L (25-115 U/L) LIPASE 175 U/L (73-393 U/L) TROPONIN-I 0.06 (SEE BELOW ) B-TYPE NATRIURETIC PROTEIN 4 PG/ML (1-100 PG/ML) Hematology from 08/08/2015 1:35 PMWBC 6.5 X10e3/UL (3.6-11.2 X10e3/UL) RBC 5.25 X10e6/UL (4.06-5.63 X10e6/UL) HEMOGLOBIN 14.2 G/DL (12.5-16.3 G/DL) HEMATOCRIT 42.5 % (36.7-47.1 %) *MCV 80.9 FL (80.0-100.0 FL) *MCH 27.0 PG (27.0-33.0 PG) *MCHC 33.4 G/DL (32.0-36.0 G/DL) *RDW 12.3 % (12.3-17.0 %) PLATELET 274 X10e3/UL (159-386 X10e3/UL) *MPV 9.1 FL (7.4-10.4 FL) AUTOMATED DIFF PERFORMED SEGS 55.4 % *LYMPHOCYTES 30.6 % *MONOCYTES 8.3 % *EOSINOPHILS 4.9 % *BASOPHILS 0.8 % *ABSOLUTE NEUTROPHILS 3.60 X10e3/UL (1.80-7.80 X10e3/UL) *ABSOLUTE LYMPHOCYTES 2.00 X10e3/UL (1.00-3.00 X10e3/UL) *ABSOLUTE MONOCYTES 0.50 X10e3/UL (0.30-1.00 X10e3/UL) *ABSOLUTE EOSINOPHILS 0.30 X10e3/UL (0.00-0.50 X10e3/UL) *ABSOLUTE BASOPHILS 0.10 X10e3/UL (0.00-0.20 X10e3/UL) Coagulation from 08/08/2015 1:35 PM*PROTHROMBIN TIME 10.3 SECONDS (9.4-11.5 SECONDS) *INR 1.0 (0.9-1.1 ) PARTIAL THROMBOPLASTIN TIME 30.0 SECONDS (23.0-31.0 SECONDS) D-DIMER 0.34 MG/L FEU (0.00-0.50 MG/L FEU) DX Radiology from 08/08/2015 1:31 PMCHEST 1 VIEW History: Chest Pain Priors: None. Findings: Heart size and pulmonary vasculature are unremarkable. No consolidation, pleural effusion, or pneumothorax is identified. Impression: No evidence of acute cardiopulmonary abnormality. Electronically signed by: ROSA MARIA LIVINGSTON Dictated: 08/08/2015 13:54 CT Scan from 08/08/2015 2:30 PMCT CHEST (CTA) History: Chest Pain . Technique: Post contrast images were performed after the administration of 95 milliliters of Isovue intravenous contrast. 3 dimensional reconstructions were performed by the technologist. Priors: None. Findings: Axillae, mediastinum, and pulmonary pratik: No lymphadenopathy. Heart and great vessels: The heart is upper limits of normal size with no pericardial effusion. The thoracic aorta is normal in caliber without dissection. Incidental arch origin of the left vertebral artery is noted. No filling defects are identified within the pulmonary arteries to suggest acute pulmonary embolism. Lungs and pleura: No consolidation, pleural effusion, or pneumothorax is identified. Chest wall and osseous structures: Unremarkable. Upper abdomen: Diffuse hepatic steatosis Impression: No evidence of acute PE or aortic dissection. Mild diffuse hepatic steatosis. Electronically signed by: ROSA MARIA LIVINGSTON Dictated: 08/08/2015 15:06 Problems Encounter Diagnosis No relevant problems exist. Encounters Encounter Diagnosis No relevant problems exist. Plan of Care Procedures No relevant procedures performed. Immunizations No immunizations administered or ordered. Hospital Course Hospital Discharge Instructions Allergies, Adverse Reactions, Alerts * Latex Allergy has not been assessed. * IV Contrast Allergy has not been assessed. Medication Medication reconciliation has not been performed.
--- OUTSIDE RECORDS SUMMARY | 2016-12-05 08:21 | XMS REPORT | Summary of Care ---
Author Author Ayush Browne, [facility] Unknown Address [address], [place] [id number] Phone Unavailable Care Team Providers Care Cyanide Case Hardener Name Role Phone Lexa Barakat DAVID Unavailable [...] Dates Details History of Wrist Surgery CP Echo Ordered:28-Oct-2014 CP Stress Echo Ordered:28-Oct-2014 Immunization Name Dates Details Immunizations [...]
--- OUTSIDE RECORDS SUMMARY | 2016-12-05 08:21 | XMS REPORT | Referral Summary ---
Author Author [facility] Organization [facility] Address Unknown Phone Unavailable Care Team Providers Care Sandal Parts Assembler Name Role Phone Gaby Amaya Primary Care Physician [phone] Encounter VC Date(s): 10/24/16 - 10/24/16 [facility], [address] [place] [address] Discharge Diagnosis: Chronic GERD Discharge Disposition: 01-Home or Self Care Attending Physician: Leonid Goins MD Admitting Physician: Leonid Goins MD Vital Signs Most recent to 1 oldest [Reference Range]: Temperature Tympanic 36.7 degC [36.6-38.1 degC] (10/24/16 4:02 PM) Peripheral Pulse 76 bpm Rate [60-100 bpm] (10/24/16 4:02 PM) Respiratory Rate 18 br/min [14-20 br/min] (10/24/16 4:02 PM) Blood Pressure 132/88 mmHg [90-140/60-90 mmHg] (10/24/16 4:02 PM) Problem List Condition Effective Dates Status Health Status Informant Morbid Active patient obesity(Confirmed) Tobacco Active patient user(Confirmed) Allergies, Adverse Reactions, Alerts Substance Reaction Severity Status Chocolate swelling Active Latex rash Active Medications ibuprofen 800 mg oral tablet 1 tabs, Oral, TID, # 90 tabs, 0 Refill(s), Pharmacy: [facility] #[id number], 1 tabs Oral TID Start Date: 09/23/14 Status: Ordered omeprazole 20 mg oral delayed release capsule 20 mg 1 caps, Oral, Daily, # 30 caps, 6 Refill(s), Pharmacy: [facility] # [id number], 1 caps Oral Daily Start Date: 10/24/16 Status: Ordered Results No data available for this section Immunizations No data available for this section Procedures Procedure Date Related Diagnosis Body Site Surgery Social History Social History Type Response Smoking Status Former smoker; Type: Cigarettes; Type: Chew; Number of years : 9 Assessment and Plan Extracted from: Title: Office Visit Note Author: Leonid Goins MD Date: 10/24/16 Assessment/Plan 1.Chronic GERD Resume omeprazole 20 mg daily. He's never hadEGD orfurther evaluation. I've recommended that that be done and we'll schedule him routine office appointment with Dr. Carbajal to discuss that further. If symptoms don't improve with the omeprazole he'll let me know. I suggested taking it twice a day for a few days and then once a day after that. I encouraged him todiscontinue tobacco usage.
--- OUTSIDE RECORDS SUMMARY | 2016-12-05 08:21 | XMS REPORT | Summary of Care ---
Author Author Evelyn Peacock M.D. Unknown Address Unknown Phone Unavailable Care Team Providers Care Core Driller Name Role Phone Evelyn Peacock M.D. Unavailable Unavailable Lexa Barakat Unavailable Unavailable Functional Status Name [...] Details Results not documented Plan of Care Name Dates Details Planned [...]
--- OUTSIDE RECORDS SUMMARY | 2016-12-05 08:22 | XMS REPORT | Summary of Care ---
Author Author Kristian Varma M.D. Organization Unknown Address Unknown Phone Unavailable Care Team Providers Care Soil Conservation Aide Name Role Phone Kristian Varma M.D. Unavailable Unavailable No Assigned PCP-Pt Confirmed Unavailable Unavailable Functional Status Name Dates Details [...] Chest pain, atypical (786.59, R07.89) Status: Active Abrasion of finger of right hand, initial encounter (915.0, S60.419A) Status: Active Medications Name Dates Details PriLOSEC [...] smoker Vital Signs Date Test Result Details 04-Jul-2016 19:03 BP Systolic 130 mm[Hg] Status: Comments: Location: ; Position: BP Diastolic 82 mm[Hg] Status: Comments: Location: ; Position: Temperature 96.3 f Status: Comments: Method: Heart Rate 79 /min Status: Comments: Location: ; Physical Findings 18 Status: Comments: Respiration Physical Findings 98 Status: Comments: O2 Saturation Results Date Description Value Details Results not [...]
--- OUTSIDE RECORDS SUMMARY | 2016-12-05 08:22 | XMS REPORT ---
Author Author [employer] Organization Unknown Address Unknown Phone Unavailable Care Team Providers Care Mortgage Loan Computation Clerk Name Role Phone PP Unavailable Reason For Visit Chief Complaint CHESTPAIN Social History Functional Status Vital Signs Results Chemistry from 10/23/2016 10:25 AMSODIUM 140 MMOL/L (136-145 MMOL/L) POTASSIUM 3.8 MMOL/L (3.5-5.1 MMOL/L) CHLORIDE 107 MMOL/L (98-107 MMOL/L) TCO2 24.4 MMOL/L (21.0-32.0 MMOL/L) *ANION GAP 8.6 MMOL/L (8.0-16.0 MMOL/L) BUN 15 MG/DL (7-18 MG/DL) CREATININE 1.08 MG/DL (0.70-1.30 MG/DL) *BUN/CREATININE RATIO 13.9 (9.1-17.0 ) GLUCOSE 127 MG/DL H (65-99 MG/DL) *GFR EST NON AFR GREENLAND[place] 90 ML/MIN *GFR EST AFR AMER >90 ML/MIN CALCIUM 8.8 MG/DL (8.5-10.1 MG/DL) BILIRUBIN TOTAL 0.40 MG/DL (0.20-1.00 MG/DL) TOTAL PROTEIN 7.8 GM/DL (6.4-8.2 GM/DL) ALBUMIN 4.1 GM/DL (3.4-5.0 GM/DL) *GLOBULIN 3.7 GM/DL H (2.3-3.5 GM/DL) *A/G RATIO 1.1 MG/DL L (1.5-2.2 MG/DL) ALK PHOS 69 U/L (46-116 U/L) ALT (SGPT) 34 U/L (14-59 U/L) AST (SGOT) 10 U/L L (15-37 U/L) TROPONIN-I <0.017 NG/ML (0.000-0.056 NG/ML) Hematology from 10/23/2016 10:25 AMWBC 7.6 X10e3/UL (3.6-11.2 X10e3/UL) RBC 5.23 X10e6/UL (4.06-5.63 X10e6/UL) HEMOGLOBIN 13.7 G/DL (12.5-16.3 G/DL) HEMATOCRIT 41.3 % (36.7-47.1 %) *MCV 79.0 FL L (80.0-100.0 FL) *MCH 26.3 PG L (27.0-33.0 PG) *MCHC 33.2 G/DL (32.0-36.0 G/DL) *RDW 13.6 % (12.3-17.0 %) *RDWSD 38.1 (37.1-47.8 ) PLATELET 252 X10e3/UL (159-386 X10e3/UL) *MPV 8.7 FL (7.4-10.4 FL) AUTOMATED DIFF PERFORMED SEGS 65.2 % *LYMPHOCYTES 23.0 % *MONOCYTES 7.7 % *EOSINOPHILS 3.5 % *BASOPHILS 0.6 % *ABSOLUTE NEUTROPHILS 5.00 X10e3/UL (1.80-7.80 X10e3/UL) *ABSOLUTE LYMPHOCYTES 1.80 X10e3/UL (1.00-3.00 X10e3/UL) *ABSOLUTE MONOCYTES 0.60 X10e3/UL (0.30-1.00 X10e3/UL) *ABSOLUTE EOSINOPHILS 0.30 X10e3/UL (0.00-0.50 X10e3/UL) *ABSOLUTE BASOPHILS 0.00 X10e3/UL (0.00-0.20 X10e3/UL) Coagulation from 10/23/2016 10:25 AM*PROTHROMBIN TIME 10.9 SECONDS (9.4-11.5 SECONDS) *INR 1.0 (0.9-1.1 ) PARTIAL THROMBOPLASTIN TIME 29.3 SECONDS (23.0-31.0 SECONDS) DX Radiology from 10/23/2016 10:41 AMCHEST 1 VIEW History: chest pain Priors: 08/08/2015 Findings: There is mild cardiomegaly and mild perihilar pulmonary venous congestion. No consolidating infiltrate, pneumothorax or pleural effusions identified. Impression: Mild cardiomegaly and pulmonary venous congestion. Electronically signed by: Matt Zabala MD Dictated: 10/23/2016 10:53 CT Scan from 10/23/2016 11:41 AMCT CHEST (CTA) History: Left-sided chest pain. Technique: Post contrast images were performed after the administration of 95 milliliters of Isovue intravenous contrast. 3 dimensional reconstructions were performed by the technologist. Priors: None. Findings: Heart Size: Normal. Aorta: Intact and normal in size. Mediastinum and Renee: No dominant adenopathy or fluid collection. Pulmonary Arteries: No evidence of filling defect to suggest pulmonary emboli. Pleura: No effusion or pneumothorax. Pulmonary parenchyma: No consolidation or dominant measurable mass. Upper abdomen: There is mild sliding-type hiatal hernia. There is mild thickening of the distal esophagus consistent with esophagitis. Impression: Mild sliding-type hiatal hernia with mild thickening of the distal esophagus likely secondary to reflux esophagitis. No evidence of pulmonary embolus or acute infiltrate. Electronically signed by: Matt Zabala MD Dictated: 10/23/2016 12:16 Problems Encounter Diagnosis No relevant problems exist. [...]
--- OUTSIDE RECORDS SUMMARY | 2016-12-05 08:22 | XMS REPORT | Referral Summary ---
Author Organization Unknown Address Unknown Phone Unavailable Care Team Providers Care Mushroom Picker Name Role Phone Gaby Amaya Primary Care Physician [phone] Encounter VC Date(s): 09/23/14 - 09/23/14 Via LES[facility] Lowe, Joe, [address] [place], [place] [id number] Discharge Diagnosis: Sinusitis Discharge Disposition: Home or Self Care Attending Physician: Rosa Amaya MD Admitting Physician: Rosa Amaya MD Vital Signs Most recent to 1 oldest [Reference Range]: Temperature Tympanic 36.7 degC [36.6-38.1 degC] (09/23/14 11:16 AM) Peripheral Pulse 68 bpm Rate [60-100 bpm] (09/23/14 11:16 AM) Blood Pressure 142/90 mmHg [90-140/60-90 mmHg] *HI* (09/23/14 11:16 AM) Problem List Condition Effective Dates Status Health Status Informant Tobacco Active patient user(Confirmed) Allergies, Adverse Reactions, Alerts Substance Reaction Severity Status Chocolate swelling Active Latex rash Active Medications amoxicillin 500 mg oral tablet 1 tabs, Oral, TID, X 10 days, # 30 tabs, 0 Refill(s), Pharmacy: [facility] #[id number], 1 tabs Oral TID,x10 days Start Date: 09/23/14 Stop Date: 10/03/14 Status: Ordered ibuprofen 800 mg oral tablet 1 tabs, Oral, TID, # 90 tabs, 0 Refill(s), Pharmacy: [facility] #[id number], 1 tabs Oral TID Start Date: 09/23/14 Status: Ordered Results No data available for this section Immunizations No data available for this section Procedures Procedure Date Related Diagnosis Body Site Surgery Social History Social History Type Response Smoking Status Former smoker; Type: Cigarettes; Type: Chew; Number of years : 9 Assessment and Plan Extracted from: Title: Ambulatory Patient Education Author: Rosa Amaya MD Date: 09/23/14 Allergy Sinusitis Sinusitis is redness, soreness, and swelling (inflammation ) of the paranasal sinuses. Paranasal sinuses are air pockets within the bones of your face ( beneath the eyes, the middle of the forehead, or above the eyes). In healthy paranasal sinuses, mucus is able to drain out, and air is able to circulate through them by way of your nose. However, when your paranasal sinuses are inflamed, mucus and air can become trapped. This can allow bacteria and other germs to grow and cause infection. Sinusitis can develop quickly and last only a short time (acute ) or continue over a long period (chronic ). Sinusitis that lasts for more than 12 weeks is considered chronic. CAUSES Causes of sinusitis include: Allergies. Structural abnormalities, such as displacement of the cartilage that separates your nostrils (deviated septum ), which can decrease the air flow through your nose and sinuses and affect sinus drainage. Functional abnormalities, such as when the small hairs (cilia ) that line your sinuses and help remove mucus do not work properly or are not present. SYMPTOMS Symptoms of acute and chronic sinusitis are the same. The primary symptoms are pain and pressure around the affected sinuses. Other symptoms include: Upper toothache. Earache. Headache. Bad breath. Decreased sense of smell and taste. A cough, which worsens when you are lying flat. Fatigue. Fever. Thick drainage from your nose, which often is green and may contain pus ( purulent ). Swelling and warmth over the affected sinuses. DIAGNOSIS Your caregiver will perform a physical exam. During the exam, your caregiver may : Look in your nose for signs of abnormal growths in your nostrils (nasal polyps) . Tap over the affected sinus to check for signs of infection. View the inside of your sinuses (endoscopy ) with a special imaging device with a light attached (endoscope ), which is inserted into your sinuses. If your caregiver suspects that you have chronic sinusitis, one or more of the following tests may be recommended: Allergy tests. Nasal cultureA sample of mucus is taken from your nose and sent to a lab and screened for bacteria. Nasal cytologyA sample of mucus is taken from your nose and examined by your caregiver to determine if your sinusitis is related to an allergy. TREATMENT Most cases of acute sinusitis are related to a viral infection and will resolve on their own within 10 days. Sometimes medicines are prescribed to help relieve symptoms (pain medicine, decongestants, nasal steroid sprays, or saline sprays) . However, for sinusitis related to a bacterial infection, your caregiver will prescribe antibiotic medicines. These are medicines that will help kill the bacteria causing the infection. Rarely, sinusitis is caused by a fungal infection. In theses cases, your caregiver will prescribe antifungal medicine. For some cases of chronic sinusitis, surgery is needed. Generally, these are cases in which sinusitis recurs more than 3 times per year, despite other treatments. HOME CARE INSTRUCTIONS Drink plenty of water. Water helps thin the mucus so your sinuses can drain more easily. Use a humidifier. Inhale steam 3 to 4 times a day (for example, sit in the bathroom with the shower running). Apply a warm, moist washcloth to your face 3 to 4 times a day, or as directed by your caregiver. Use saline nasal sprays to help moisten and clean your sinuses. Take [id number] or prescription medicines for pain, discomfort, or fever only as directed by your caregiver. SEEK IMMEDIATE MEDICAL CARE IF: You have increasing pain or severe headaches. You have nausea, vomiting, or drowsiness. You have swelling around your face. You have vision problems. You have a stiff neck. You have difficulty breathing. MAKE SURE YOU: Understand these instructions. Will watch your condition. Will get help right away if you are not doing well or get worse. Document Released: 08/14/2006 Document Revised: 11/05/2012 Document Reviewed: [facility] Patient Information 2014 [employer] [facility]. No follow up information was provided. Extracted from: Title: Office Visit Note Author: Rosa Amaya MD Date: 09/23/14 Assessment/Plan Sinusitis follow up with pcp Orders: amoxicillin, 1 tabs, Oral, TID, X 10 days, # 30 tabs, 0 Refill(s), Pharmacy: [facility] #[id number], 1 tabs Oral TID,x10 days ibuprofen, 1 tabs, Oral, TID, # 90 tabs, 0 Refill(s), Pharmacy: [facility] #[id number], 1 tabs Oral TID
[2016-12-05] MEDS ORDERED: PROPOFOL 500mg 50 ML IV ONE (08:29)
[2016-12-05 08:30] VITALS: BP 136/82; PULSE 57; RESP 18; TEMP 97.5; O2SAT 95
[2016-12-05 08:34] VITALS: Ht 200.7 cm; Wt 157.9 kg
--- NOTE | 2016-12-05 08:54 | ANESPREOP ---
Anesthesia Record Date and Time DATE: 12/05/16 TIME: 08:53 Pre-Op Diagnosis gerd Proposed Surgical Procedure ESOPHAGOGASTRODUODENOSCOPY NPO since: 2199 Allergies: Coded Allergies: Chocolate (Unverified Allergy, Unknown, 12/05/16) latex (Verified Allergy, Unknown, RASH, 12/05/16) Ht/Wt/BMI Height: 6 ' 7.00 " Weight: 157.900 kg BMI: 39.2 kg/m2 Vital Signs Date Time Temp Pulse Resp B/P Pulse Ox O2 Delivery O2 Flow Rate FiO2 12/05/16 08:30 97.5 57 18 136/82 95 Room Air Medications Inpatient Medications Current Medications Medications (Trade) Dose Ordered Sig/Ole Start Time Stop Time Status Last Admin Dose Admin Lactated Ringer's (Lactated Ringers) 1,000 ml @ 30 mls/hr Q24H 12/05/16 07:00 12/05/16 08:46 30 MLS/HR Ibuprofen (Ibuprofen) 200 Mg Tablet, 800 MG PO Q8H PRN for PAIN, (Reported) Last Taken: on 11/25/16 Omeprazole (Omeprazole) 40 Mg Capsule.dr, 40 MG PO DAILY, (Reported) Last Taken: on 12/04/16 0630 Currently on Beta Manju: No Medical/Surgical History Anesthesia PMH: Reports: *Angina (WEB FEEDER R/O CARDIAC- OVER 1 YEAR AGO), * Hypertension (IN THE PAST- NO MEDS CURRENTLY), Arthritis (WRIST-RIGHT), Obesity , Reflux, Denies: *Diabetes, Anesthesia Reactions (DIFFICULT INTUBATION PER ), CVA/Stroke/TIA, Cancer, Clotting Problems, Glaucoma, Malignant Hyperthermia, Pneumonia, Seizures, Sleep Apnea, Thyroid Disease Smoking Status: Never smoker Has pt. smoked today?: No Use Chewing Tobacco?: No Second Hand Exposure: No Substance Use Type: does not use Alcohol Intake: none Past Surgical History Orthopedic Surgeries: Yes - RIGHT WRIST Abdominal Surgeries: Genitourinary Surgeries: Cardiac Surgeries: Endocrine Surgeries: Reproductive Surgeries: Neurological Surgeries: Ear Surgeries: Nose Surgeries: Throat Surgeries: Other Surgeries: Yes - WISDOM TEETH REMOVAL,DOSTORTION Anesthesia Adverse Reactions: FOUND none Family Hx of Anesthesia Advers: none Hx of Motion Sickness: No Pertinent Findings EKG Rhythm: Sinus Rhythm Physical Exam Respiratory: Lungs clear Cardiovascular: FOUND Regular rate, rhythm, FOUND No murmur Airway Assessment Mallampati Score: III TMD: 3 Fingerbreadths Neck Extension: Good Teeth: Chipped Teeth/Crowns Overall Assessment: May Be Diff Mask Vent., May Be Diff Intubation ASA: 2 Plan Anesthesia Plan: TIVA Discussion Discussed risks/options/alternatives of anesthesia and questions answered. Patient consents. Nursing pain assessment noted. Attestation Statement Prior to the delivery of any anesthetic medication, I examined the patient, developed the plan, obtained the patient's consent and discussed the risk and benefits of the procedure with the patient/guardian. CONNOR BOSTON I CUPOLA REPAIRER Dec 05, 2016 08:54
[2016-12-05] MEDS ORDERED: GLYCOPYRROLATE 0.4mg/2ml INJECTION ONE (09:13)
[2016-12-05] MEDS ORDERED: BENZOCAINE 20% Top. Anesth. SPRAY UD ONE (10:03)
[2016-12-05] MEDS ORDERED: LIDOCAINE VISCOUS 2% Oral Soln 15ml UD ONE (10:03)
[2016-12-05 10:20] VITALS: BP 109/70; PULSE 67; RESP 18; TEMP 97.1; O2SAT 97
[2016-12-05 10:35] VITALS: BP 111/71; PULSE 60; RESP 16; O2SAT 94
[2016-12-05 10:50] VITALS: BP 123/83; PULSE 58; RESP 16; O2SAT 96
[2016-12-05 11:05] VITALS: BP 123/83; PULSE 57; RESP 16; O2SAT 96
--- NOTE | 2016-12-05 11:08 | ANESPO ---
Post-Op Note Date 12/05/16 Time: 11:07 Status Pt Participated in Evaluation: Pt participated in person Vital Signs Date Time Temp Pulse Resp B/P Pulse Ox O2 Delivery O2 Flow Rate FiO2 12/05/16 10:50 58 16 123/83 96 Room Air 12/05/16 10:20 97.1 Respiratory Function: Airway patent, Regular respirations Cardiovascular Function: Regular pulse Mental Status: Alert/oriented Pain Level Intensity: 0 Hydration: Taking po fluids Complications during Recovery None apparent Follow-Up Instructions Instructions Per Surgeon CONNOR BOSTON I HARD HAT DIVER Dec 05, 2016 11:08
[2016-12-05 11:36] VITALS: BP 131/92; PULSE 58; RESP 16; O2SAT 95
--- NOTE | 2016-12-05 16:41 | OPNOTEF ---
DATE OF SERVICE 12/05/2016 SURGEON Ronnie Carbajal MD PREOPERATIVE DIAGNOSIS Personal history for gastroesophageal reflux disease, refractory to medical management. POSTOPERATIVE DIAGNOSIS Personal history for gastroesophageal reflux disease, refractory to medical management, irregular GE junction, esophagitis. PROCEDURE Esophagogastroduodenoscopy with circumferential biopsies from distal esophagus via cold biopsy technique. ANESTHESIA TIVA BRIEF HISTORY/INDICATIONS Mr. Toribio is a 30-year-old gentleman who recently presented to my office as a result of his longstanding history for heartburn/gastroesophageal reflux disease. Despite being on medical management, the patient does continue to have ongoing breakthrough symptomatology. As a result of his clinical history, it was recommended that he undergo esophagogastroduodenoscopy for further evaluation. For completeness please refer to the notes included in the patient's chart. FINDINGS Upon upper endoscopy, the esophagus, stomach and duodenum were found to be essentially within normal limits. 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 There was several areas where the columnar mucosa had migrated up onto the squamous epithelium to a length of about a centimeter. Photos were obtained for documentation purposes. Distal esophagus was somewhat edematous and erythematous in nature. Multiple circumferential biopsies were obtained from the distal esophagus via cold biopsy technique. DESCRIPTION OF PROCEDURE After informed consent was obtained, the patient was brought to the endoscopy suite and placed on the table in left lateral decubitus position. The patient subsequently underwent total intravenous anesthesia by the nurse police department secretary per my request. A formal time-out was then completed. Next, an Olympus gastroscope was inserted into the oral hypopharynx and subsequently the esophagus under direct visualization. The gastroscope was advanced through the esophagus, stomach, pylorus, duodenal bulb, into the second portion of the duodenum. The scope was slowly withdrawn. First and second portions of the duodenum were within normal limits. No evidence for duodenitis or ulcerations were noted. The scope was then drawn back into the prepyloric region and antrum. Again, no marked mucosal abnormalities were noted. A J-maneuver was performed. Cardia and fundus were within normal limits. Endoscopically, there was no evidence for significant hiatal hernia. Scope was allowed to straighten and slowly withdrawn. The remaining corpus of the stomach was well visualized and again without noted abnormalities. Scope was withdrawn back to the level of the diaphragm. Scope was then withdrawn a couple of centimeters where the squamocolumnar junction was located, i.e. the squamocolumnar junction was located about 2-3 cm above the level of the diaphragm. 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 Several circumferential biopsies were obtained from the distal esophagus at various lengths via cold biopsy technique. Gastroscope was then slowly withdrawn. The remaining esophageal mucosa was found to be within normal limits. The patient tolerated the procedure without difficulty and was sent back to the preop area in stable condition. We will await the biopsy results from today's EGD and will proceed accordingly with further recommendations thereafter. [facility]
== END 2016-12-05 11:40 | disposition home or self-care (01) ==
LOC: NSC 08:14
PROVIDERS: ATTEND Surgery
DX: K21.0 Gastro-esophageal reflux disease with esophagitis (principal); Z79.899 Other long term (current) drug therapy; F41.9 Anxiety disorder, unspecified; F32.9 Major depressive disorder, single episode, unspecified; I10 Essential (primary) hypertension; F17.210 Nicotine dependence, cigarettes, uncomplicated; Z79.1 Long term (current) use of non-steroidal anti-inflammatories (NSAID)
CPT/HCPCS: 43239; J2704; J7120